=== PATIENT | female | born 1990 | race Hispanic/Latino ===

== ENCOUNTER 2023-03-25 12:51 | Day surgery (SDC) | payer OTHER ==
[2023-03-25] MEDS ORDERED: Acetaminophen 500 MG TAB ONE (13:03)
[2023-03-25] MEDS ORDERED: Iron Sucrose Complex 500 MG in Sodium Chloride 0.9% 250 ML 250 ML IVPB SCH (13:15)
[2023-03-25] MEDS ORDERED: Acetaminophen 500 MG TAB PO SCH (13:15)
== END 2023-03-25 18:15 | disposition home or self-care (01) ==
LOC: CSHSDC/OP 12:51
PROVIDERS: ATTEND Family Medicine
DX: O99.019 Anemia complicating pregnancy, unspecified trimester (principal); D64.9 Anemia, unspecified
CPT/HCPCS: J1756; J7050

== ENCOUNTER 2023-06-27 11:48 | Day surgery (SDC) | payer OTHER ==
[2023-06-27] MEDS ORDERED: hydrALAZINE 20 MG/ML VIAL SLOW IVP PRN (12:06)
[2023-06-27 12:22] VITALS: BMI 26.9
[2023-06-27] MEDS ORDERED: Iron Sucrose Complex 500 MG in Sodium Chloride 0.9% 250 ML 250 ML IVPB SCH (14:00)
[2023-06-27] MEDS ORDERED: Acetaminophen 500 MG TAB PO SCH (14:00)
== END 2023-06-27 20:20 | disposition home or self-care (01) ==
LOC: CSHLD/OP 11:48
PROVIDERS: ATTEND Family Medicine
DX: O36.8130 Decreased fetal movements, third trimester, not applicable or unspecified (principal); O26.613 Liver and biliary tract disorders in pregnancy, third trimester; K83.1 Obstruction of bile duct; O99.013 Anemia complicating pregnancy, third trimester; D64.9 Anemia, unspecified; Z3A.35 35 weeks gestation of pregnancy; Z79.899 Other long term (current) drug therapy
CPT/HCPCS: 76819; 96360; 96361; 96365; 96366; 99282; J1756; J7050

== ENCOUNTER 2023-07-05 10:17 | Outpatient (CLI) | payer OTHER | END 2023-07-05 10:18 | disposition home or self-care (01) | LOC: CSHLAB 10:17 | PROVIDERS: ATTEND Obstetrics & Gynecology | DX: Z01.812 Encounter for preprocedural laboratory examination (principal); O34.219 Maternal care for unspecified type scar from previous cesarean delivery; Z53.9 Procedure and treatment not carried out, unspecified reason | CPT/HCPCS: 85014; 85018; 85049; 86780; 86850; 86900; 86901; 87340 ==

== ENCOUNTER 2023-07-08 05:30 | Inpatient (IN) | payer OTHER ==
[2023-07-05 11:28] LABS: Hemoglobin 10.2 g/dL (12.0-15.5); Platelet Count 229 10x3/uL (150-450)
[2023-07-05 11:59] LABS: HBSAg Index 0.18 S/CO (0-0.99); Hep B Surf Ag Non-Reactive S/CO (NonReactive)
[2023-07-05 12:00] LABS: Syphilis Antibody Nonreactive (Nonreactive); Syphilis Antibody Index 0.13 S/CO (<1.00 Non-Reactive)
[2023-07-08 06:21] VITALS: BMI 27.1
[2023-07-08] MEDS ORDERED: Misoprostol 200 MCG TAB PR PRN (06:26)
[2023-07-08] MEDS ORDERED: Carboprost 250 MCG/ML AMP IM PRN (06:26)
[2023-07-08] MEDS ORDERED: Methylergonovine 0.2 MG/ML VIAL IM PRN (06:26)
[2023-07-08] MEDS ORDERED: Famotidine/PF 20 mg/2ml Vial SLOW IVP PRN (06:26)
[2023-07-08] MEDS ORDERED: Bicitra 30 ML UDCUP PO PRN (06:26)
[2023-07-08] MEDS ORDERED: Ondansetron PF 4 MG/2 ML Vial IVP PRN ×3 (06:26→11:36)
[2023-07-08] MEDS ORDERED: Promethazine HCl 25 MG/ML VIAL IM PRN ×2 (06:26→07:09)
[2023-07-08] MEDS ORDERED: Tranexamic Acid 1,000 MG/10 ML VIAL IVP PRN (06:26)
[2023-07-08] MEDS ORDERED: hydrALAZINE 20 MG/ML VIAL SLOW IVP PRN ×2 (06:26→11:36)
[2023-07-08] MEDS ORDERED: Lactated Ringer's 1,000 ML IV SCH (06:30)
[2023-07-08] MEDS ORDERED: NS w/ Oxytocin 30 units 500 ML IV SCH (06:30)
[2023-07-08] MEDS ORDERED: CEFAZOLIN 2 GM in Sodium Chloride 0.9% 100 ML IVPB SCH (06:30)
[2023-07-08] MEDS ORDERED: fentaNYL 50 mcg/mL 1 mL Vial ONE (06:45)
[2023-07-08] MEDS ORDERED: Morphine PF 10 MG/10 ML VIAL ONE (06:45)
[2023-07-08] MEDS ORDERED: Phenylephrine 10 MG/ML VIAL ONE (06:46)
[2023-07-08] MEDS ORDERED: Dexamethasone 4 mg/ml Vial ONE (06:46)
[2023-07-08] MEDS ORDERED: Ondansetron PF 4 MG/2 ML Vial ONE (06:46)
[2023-07-08] MEDS ORDERED: Oxytocin 10 UNITS/ML VIAL ONE (06:46)
[2023-07-08] MEDS ORDERED: Ondansetron HCl/PF 4 MG/2 ML Vial IVP PRN (07:09)
[2023-07-08] MEDS ORDERED: Naloxone HCl 0.4 mg/ml Vial IVP PRN ×2 (07:09)
[2023-07-08] MEDS ORDERED: Promethazine HCl 25 MG SUPP PR PRN (07:09)
[2023-07-08] MEDS ORDERED: diphenhydrAMINE 50 MG/ML VIAL IVP PRN (07:09)
[2023-07-08] MEDS ORDERED: Naloxone HCl 0.4 mg/ml Vial IV PRN (07:09)
[2023-07-08] MEDS ORDERED: Moisturizing Cream (Eucerin) 113 GM JAR TOP PRN (07:09)
[2023-07-08] MEDS ORDERED: Fentanyl 50 MCG/1 ML VIAL SLOW IVP PRN (07:09)
[2023-07-08] MEDS ORDERED: Meperidine HCl/PF 25 MG/ML VIAL SLOW IVP PRN (07:09)
[2023-07-08] MEDS ORDERED: L&D-HYDROmorphone 0.5 MG/0.5 ML SYRINGE SLOW IVP PRN (07:09)
[2023-07-08] MEDS ORDERED: Ketorolac Tromethamine 30 MG/ML VIAL IVP SCH (07:15)
[2023-07-08] MEDS ORDERED: Communication Order-Pharmacy FS SCH (07:15)
[2023-07-08] MEDS: Ketorolac Tromethamine 30 MG/ML VIAL IVP PRN ×2 (10:52→16:34)
[2023-07-08] MEDS ORDERED: Lanolin Ointment 7 GM TUBE TOP PRN (11:36)
[2023-07-08] MEDS ORDERED: Simethicone Chewable 80 MG TAB PO PRN (11:36)
[2023-07-08] MEDS ORDERED: Bisacodyl 10 MG SUPP PR PRN (11:36)
[2023-07-08] MEDS ORDERED: Boostrix 0.5 ML (Tdap) VIAL (>/=7 yrs of age) IM ONE (11:36)
[2023-07-08] MEDS ORDERED: diphenhydrAMINE 25 MG CAP PO PRN (11:36)
[2023-07-09] MEDS: Ferrous Sulfate 325 MG TAB PO SCH ×3 (02:05→21:49)
[2023-07-09 04:26] LABS: Hematocrit 28.6 % (34.9-44.5); Hemoglobin 8.9 g/dL (12.0-15.5); Mean Corpuscular HGB CONC 31.1 g/dL (32.0-36.0); Mean Corpuscular Hemoglobin 23.7 pg (27.0-33.0); Mean Corpuscular Volume 76.3 fl (81.6-98.3); Mean Platelet Volume 10.3 fl (7.4-10.4); Platelet Count 160 10x3/uL (150-450); Red Blood Cell (RBC) Count 3.75 10x6/uL (3.90-5.03); White Blood Cell (WBC) Count 7.2 10x3/uL (3.5-10.5)
[2023-07-09] MEDS: Ketorolac Tromethamine 30 MG/ML VIAL IVP PRN ×2 (06:31)
[2023-07-09] MEDS: HYDROcodone/Acetaminophen 5/325 mg Tablet PO PRN ×4 (08:29→21:49)
[2023-07-09] MEDS: Prenatal Vitamin 1 TAB PO SCH (08:29)
[2023-07-09] MEDS ORDERED: Lactated Ringer's 1,000 ML IV SCH (12:45)
[2023-07-09 13:18] LABS: Hematocrit 30.1 % (34.9-44.5); Hemoglobin 9.2 g/dL (12.0-15.5)
[2023-07-09 14:06] LABS: Anion Gap 11 mmol/L (10-20); BUN (Urea Nitrogen) 6 mg/dL (7.0-18.7); Calc. Creatinine Clearance 141 mL/min (70-130); Calcium 8.1 mg/dL (7.6-10.4); Carbon Dioxide 23 mmol/L (22-29); Chloride 109 mmol/L (98-107); Estimated GFR 123; Glucose 66 mg/dL (70-105); Potassium 3.9 mmol/L (3.5-5.1); Sodium 139 mmol/L (136-145)
[2023-07-09] MEDS: Ibuprofen 800 MG TAB PO SCH ×2 (14:26→21:49)
[2023-07-10] MEDS: Ibuprofen 800 MG TAB PO SCH (05:45)
[2023-07-10 07:34] VITALS: BP 113/74; TEMP 97.9
[2023-07-10] MEDS: Prenatal Vitamin 1 TAB PO SCH (08:30)
[2023-07-10] MEDS: Ferrous Sulfate 325 MG TAB PO SCH (08:30)
[2023-07-10] MEDS: HYDROcodone/Acetaminophen 5/325 mg Tablet PO PRN (10:40)
== END 2023-07-10 11:50 | disposition home or self-care (01) | DRG 786 ==
LOC: CSHLD 05:30 → CSHPP 11:15
PROVIDERS: ADMIT Obstetrics & Gynecology; ATTEND Obstetrics & Gynecology
PROC: 10D00Z1 Extraction of Products of Conception, Low, Open Approach (ICD-10-PCS; principal; 2023-07-08)
DX: O34.211 Maternal care for low transverse scar from previous cesarean delivery (principal); K83.1 Obstruction of bile duct; O60.13X0 Preterm labor second trimester with preterm delivery third trimester, not applicable or unspecified; O26.62 Liver and biliary tract disorders in childbirth; Z3A.36 36 weeks gestation of pregnancy; Z37.0 Single live birth; O99.02 Anemia complicating childbirth; D50.9 Iron deficiency anemia, unspecified
CPT/HCPCS: 51702; 80048; 85014; 85018; 85027; 85049; 86780; 86850; 86900; 86901; 87340; J1100; J1885; J2274; J2370; J2405; J2590; J3010; J3490; J7120; S0028